=== PATIENT | male | born 1935 | race Caucasian/White ===

== ENCOUNTER 2021-11-20 12:42 | Emergency (ER) | payer MEDICARE, OTHER ==
[2021-11-20 15:03] LABS: BASOPHIL 0.5 % (0-2); EOSINOPHIL 1.8 % (0-7); HCT 41.4 % (42.0-52.0); HGB 13.7 g/dl (13.2-18.0); LYMPHOCYTE 23.8 % (15-48); MCH 31.8 pg (25.0-31.0); MCHC 33.1 g/dL (32.0-36.0); MCV 96.1 fL (78.0-100.0); MONOCYTE 6.6 % (0-12); NEUTROPHIL 66.8 % (41-80); NRBC 0; PLT 237 K/uL (150-400); RBC 4.31 M/uL (4.70-6.00); RDW 13.4 % (11.5-14.0); WBC 8.7 K/uL (4.0-10.5)
[2021-11-20 15:29] LABS: ALBUMIN 3.9 g/dL (3.4-5.0); ALKALINE PHOSHATASE 81 U/L (46-116); ALT 23 U/L (16-63); AST 18 U/L (15-37); BUN 42 mg/dL (7-18); BUN/CREAT RATIO (CALC) 27.6 RATIO; CHLORIDE 101 mmol/L (98-107); CO2 (BICARBONATE) 29 mmol/L (21-32); CREATININE 1.52 mg/dL (0.67-1.17); GLOBULIN (CALCULATION) 3.5 g/dL; GLUCOSE 186 mg/dL (74-106); POTASSIUM 4.7 mmol/L (3.5-5.1); TOTAL PROTEIN 7.4 g/dL (6.4-8.2)
[2021-11-20 15:31] LABS: C-REACTIVE PROTEIN < 0.20 mg/dL (<=0.90)
[2021-11-20] MEDS ORDERED: NORCO 5-325 TA1 EACH PO (18:09)
[2021-11-20] MEDS ORDERED: MEDROL 4MG DOSEP4 MG PO (18:09)
== END 2021-11-20 18:19 | disposition home or self-care (01) ==
LOC: FER 12:42
PROVIDERS: Emergency Medicine
DX: M47.812 Spondylosis without myelopathy or radiculopathy, cervical region (principal); Z88.5 Allergy status to narcotic agent; Z88.8 Allergy status to other drugs, medicaments and biological substances
CPT/HCPCS: 36415; 70450; 72125; 80053; 85025; 86140

== ENCOUNTER 2021-12-14 19:00 | Emergency (ER) | payer MEDICARE, OTHER ==
[~2021-12-14 19:00] MED LIST: MEDROL 4MG DOSEP4 MG PO; NORCO 5-325 TA1 EACH PO
[2021-12-14 21:29] LABS: BASOPHIL 0.5 % (0-2); EOSINOPHIL 1.8 % (0-7); HCT 41.5 % (42.0-52.0); HGB 13.8 g/dl (13.2-18.0); LYMPHOCYTE 16.7 % (15-48); MCH 31.7 pg (25.0-31.0); MCHC 33.3 g/dL (32.0-36.0); MCV 95.4 fL (78.0-100.0); MONOCYTE 5.7 % (0-12); MPV 9.6 fL (6.0-9.5); NEUTROPHIL 75.1 % (41-80); NRBC 0; PLT 186 K/uL (150-400); RBC 4.35 M/uL (4.70-6.00); RDW 13.2 % (11.5-14.0); WBC 8.9 K/uL (4.0-10.5)
[2021-12-14 21:48] LABS: ALBUMIN 4.2 g/dL (3.4-5.0); BILIRUBIN - TOTAL 1.2 mg/dL (0.2-1.0); BUN/CREAT RATIO (CALC) 28.8 RATIO; CREATININE 1.6 mg/dL (0.67-1.17); GLOBULIN (CALCULATION) 3.4 g/dL; POTASSIUM 4.6 mmol/L (3.5-5.1); TOTAL PROTEIN 7.6 g/dL (6.4-8.2)
[2021-12-14] MEDS ORDERED: NORCO 5-325 TA1 EACH PO (22:50)
== END 2021-12-14 19:39 | disposition home or self-care (01) ==
LOC: FER 19:00
PROVIDERS: Internal Medicine
DX: M25.511 Pain in right shoulder (principal); M54.2 Cervicalgia; I12.9 Hypertensive chronic kidney disease with stage 1 through stage 4 chronic kidney disease, or unspecified chronic kidney disease; E11.22 Type 2 diabetes mellitus with diabetic chronic kidney disease; N18.30 Chronic kidney disease, stage 3 unspecified; Z88.5 Allergy status to narcotic agent; Z88.8 Allergy status to other drugs, medicaments and biological substances; W19.XXXA Unspecified fall, initial encounter; Y92.009 Unspecified place in unspecified non-institutional (private) residence as the place of occurrence of the external cause
CPT/HCPCS: 36415; 70450; 71250; 72125; 80053; 84145; 84484; 85025; 93005; J7040